=== PATIENT | female | born 1985 | race Caucasian/White ===

== ENCOUNTER 2021-06-23 03:38 | Emergency (ER) | payer OTHER, SELFPAY ==
[2021-06-23] MEDS ORDERED: Ondansetron ODT 4 MG TAB ONE (04:47)
== END 2021-06-23 04:50 | disposition left against medical advice (07) ==
LOC: BURERS 03:38
DX: S06.0X9A Concussion with loss of consciousness of unspecified duration, initial encounter (principal); W22.8XXA Striking against or struck by other objects, initial encounter
CPT/HCPCS: 70450; Q0162